=== PATIENT | female | born 1945 | race Caucasian/White ===

== ENCOUNTER 2018-01-19 15:40 | Observation (INO) | payer MEDICARE, OTHER ==
[~2018-01-19] VITALS: Ht 175.3 cm; Wt 91.5 kg
[2018-01-19 15:48] VITALS: BP 95/61; PULSE 121; RESP 16; TEMP 98.1; O2SAT 100
--- NOTE | 2018-01-19 15:57 | PD ---
HPI Chief Complaint: Abdominal Pain Time Seen by Provider: 15:57 Travel History International Travel<30 days: No Contact w/Intl Traveler<30days: No Traveled to known affect area: No History of Present Illness HPI 72-year-old female came to the emergency room with history of vomiting and abdominal pain that's been going on for 1 week. It's not getting better and hence patient decided to come to the emergency room. Patient says that yesterday she vomited about 9-10 times. She has been complaining of diffuse abdominal pain. All the symptoms are worsening and hence he decided to come to the emergency room. No aggravating or relieving symptoms. Vital signs are stable. PFSH Past Medical History Narrative Medical List of her past medical, surgical, social and family history is reviewed from the nursing note. Diabetes: Yes Social History Tobacco Use: No Allergies-Medications (Allergen,Severity, Reaction): Coded Allergies: No Known Allergies (Unverified , 01/20/18) Comments List of allergies reviewed from the nursing note. Reported Meds & Prescriptions Reported Meds & Active Scripts Active Reported Vitamin C (Ascorbic Acid) 250 Mg Tab 500 Mg PO DAILY Calcium 600+D (Calcium Carbonate-Cholecalciferol) 600-800 Mg-Unit Tab 1 Tab PO BID Fish Oil 1000 mg ([place]-3 Fatty Acids) 300 Mg-1,000 Mg Cap 1,000 Mg PO BID Colace (Docusate Sodium) 100 Mg Capsule 100 Mg PO DAILY PRN Tension Headache Reliever Tab (Acetaminophen/Phenyltolx) 325 Mg-30 Mg Tablet 1- 2 Tab PO Q4-6H PRN Fenofibrate 145 Mg Tab 145 Mg PO DAILY Gabapentin 600 Mg Tab 600 Mg PO BID Xanax (Alprazolam) 0.25 Mg Tab 0.25 Mg PO BID PRN Proventil Hfa 6.7 GM Inh (Albuterol Sulfate) 90 Mcg/Act Aer 2 Puff INH Q6H PRN Januvia (Sitagliptin Phosphate) 100 Mg Tab 100 Mg PO DAILY Metformin (Metformin HCl) 1,000 Mg Tab 1,000 Mg PO BID Magnesium Oxide 400 Mg Tab 400 Mg PO DAILY Lasix (Furosemide) 40 Mg Tab 40 Mg PO DAILY Aldactone (Spironolactone) 50 Mg Tab 50 Mg PO DAILY Paxil (Paroxetine HCl) 30 Mg Tab 30 Mg PO DAILY Aspirin Adult Low Strength (Aspirin) 81 Mg Chew 81 Mg PO DAILY Coumadin (Warfarin) 5 Mg Tab 5 Mg PO DAILY Diltiazem ER 24 HR 240 Mg Caper 240 Mg PO DAILY Lanoxin (Digoxin) 125 Mcg Tablet 125 Mcg PO DAILY Narrative Medication List of his home medications reviewed from the nursing note. Review of Systems Except as stated in HPI: all other systems reviewed are Neg Gastrointestinal: Positive: Nausea, Vomiting, Abdominal Pain Physical Exam Narrative GENERAL: Awake, alert, obese, moderate distress SKIN: Focused skin assessment warm/dry. HEAD: Atraumatic. Normocephalic. EYES: Pupils equal and round. No scleral icterus. No injection or drainage. ENT: No nasal bleeding or discharge. Dry mucous membrane NECK: Trachea midline. No JVD. CARDIOVASCULAR: Regular rate and rhythm. No murmur appreciated. RESPIRATORY: No accessory muscle use. Clear to auscultation. Breath sounds equal bilaterally. GASTROINTESTINAL: Abdomen soft, diffuse tenderness, nondistended. Hepatic and splenic margins not palpable. MUSCULOSKELETAL: No obvious deformities. No clubbing. No cyanosis. No edema. NEUROLOGICAL: Awake and alert. No obvious cranial nerve deficits. Motor grossly within normal limits. Normal speech. PSYCHIATRIC: Appropriate mood and affect; insight and judgment normal. Data Data Last Documented VS Vital Signs Date Time Temp Pulse Resp B/P (MAP) Pulse Ox O2 Delivery O2 Flow Rate FiO2 01/19/18 18:54 84 16 122/64 (83) 92 Room Air 01/19/18 18:48 2.00 01/19/18 15:48 98.1 Orders Orders Complete Blood Count With Diff (01/19/18 16:15) Comprehensive Metabolic Panel (01/19/18 16:15) Lipase (01/19/18 16:15) Ct Abd/Pel W/O Iv Contrast (01/19/18 16:15) Iv Access Insert/Monitor (01/19/18 16:15) Ecg Monitoring (01/19/18 16:15) Oximetry (01/19/18 16:15) Sodium Chlor 0.9% 1000 Ml Inj (Ns 1000 M (01/19/18 16:15) Sodium Chloride 0.9% Flush (Ns Flush) (01/19/18 16:15) Consult Pablo Nfs (01/19/18 ) Admit Order (Ed Use Only) (01/19/18 19:37) Labs Laboratory Tests Test 01/19/18 16:20 White Blood Count 6.8 TH/MM3 Red Blood Count 5.33 MIL/MM3 Hemoglobin 13.9 GM/DL Hematocrit 42.1 % Mean Corpuscular Volume 79.1 FL Mean Corpuscular Hemoglobin 26.0 PG Mean Corpuscular Hemoglobin Concent 32.9 % Red Cell Distribution Width 16.5 % Platelet Count 323 TH/MM3 Mean Platelet Volume 9.1 FL Neutrophils (%) (Auto) 64.5 % Lymphocytes (%) (Auto) 21.4 % Monocytes (%) (Auto) 10.7 % Eosinophils (%) (Auto) 2.7 % Basophils (%) (Auto) 0.7 % Neutrophils # (Auto) 4.4 TH/MM3 Lymphocytes # (Auto) 1.5 TH/MM3 Monocytes # (Auto) 0.7 TH/MM3 Eosinophils # (Auto) 0.2 TH/MM3 Basophils # (Auto) 0.1 TH/MM3 CBC Comment DIFF FINAL Differential Comment Blood Urea Nitrogen 9 MG/DL Creatinine 1.37 MG/DL Random Glucose 157 MG/DL Total Protein 8.4 GM/DL Albumin 3.9 GM/DL Calcium Level 9.9 MG/DL Alkaline Phosphatase 73 U/L Aspartate Amino Transf (AST/SGOT) 56 U/L Alanine Aminotransferase (ALT/SGPT) 39 U/L Total Bilirubin 0.4 MG/DL Sodium Level 130 MEQ/L Potassium Level 3.7 MEQ/L Chloride Level 92 MEQ/L Carbon Dioxide Level 28.4 MEQ/L Anion Gap 10 MEQ/L Estimat Glomerular Filtration Rate 38 ML/MIN Lipase 192 U/L [facility] Medical Decision Making Medical Screen Exam Complete: Yes Emergency Medical Condition: Yes Medical Record Reviewed: Yes Differential Diagnosis Small bowel obstruction, acute cholecystitis, acute appendicitis, acute appendicitis Narrative Course 7:36 PM blood test results are back. Patient has mild hyponatremia. CT scan shows appendicolith. I discussed the case with Dr. Chen who is on-call for general surgery. He agreed with patient's admission and he will consult on the patient. Patient has been admitted to the hospitalist. Procedures EKG Prior to Arrival: No Physician Communication Physician Communication Dr. Chen Diagnosis Primary Impression: Abdominal pain Qualified Codes: R10.84 - Generalized abdominal pain Additional Impressions: Vomiting Qualified Codes: R11.2 - Nausea with vomiting, unspecified Appendicolith Dehydration Admitting Information Admitting Physician Requests: Admit Scripts Glucocom Test Strips (Glucocom Test Strips) 1 Sudha Sudha EA .XX DIRECTED for Blood Sugar Management, #1 Prov: Mary Alice Blanchard 01/21/18 Lancets (Lancets) 1 Mis Mis EA .XX DIRECTED for Blood Sugar Management, #1 0 Refills Prov: Mary Alice Blanchard 01/21/18 Blood Glucose Monitoring W/Device (Glucocom Blood Glucose Mo W/Device) 1 Kit Kit KIT .XX DIRECTED for Blood Sugar Management, #1 Prov: Mary Alice Blanchard 01/21/18 Cefuroxime (Cefuroxime) 500 Mg Tab 500 MG PO BID for Infection for 2 Days, #4 TAB 0 Refills Prov: Mary Alice Blanchard 01/21/18 Juan Gaspar MD Jan 19, 2018 15:57
[2018-01-19] MEDS ORDERED: SODIUM CHLORIDE 0.9% FLUSH 10 ML FLUSH IV FLUSH PRN ×2 (16:15→20:00)
[2018-01-19] MEDS ORDERED: SODIUM CHLOR 0.9% 1000 ML INJ 1,000 ML IV SCH (16:15)
[2018-01-19] MEDS ORDERED: COUM5TAB PO (16:49)
[2018-01-19] MEDS ORDERED: ALPR.25 PO (16:49)
[2018-01-19] MEDS ORDERED: FURO1TAB60 PO (16:49)
[2018-01-19] MEDS ORDERED: SITA1TAB2 PO (16:49)
[2018-01-19] MEDS ORDERED: METF1000 PO (16:49)
[2018-01-19] MEDS ORDERED: GABA600T PO (16:49)
[2018-01-19] MEDS ORDERED: FENO145T2 PO (16:49)
[2018-01-19] MEDS ORDERED: ALBU6.7H INH (16:49)
[2018-01-19] MEDS ORDERED: COLA100C5 PO (16:49)
[2018-01-19] MEDS ORDERED: FISH100020 PO (16:49)
[2018-01-19] MEDS ORDERED: PAXI30TA7 PO (16:49)
[2018-01-19] MEDS ORDERED: DILT-48 PO (16:49)
[2018-01-19] MEDS ORDERED: LANO0.12 PO (16:49)
[2018-01-19] MEDS ORDERED: [UNRECOGNIZED DRUG - CODE] PO (16:49)
[2018-01-19] MEDS ORDERED: CALC1TAB37 PO (16:49)
[2018-01-19] MEDS ORDERED: MAGN400T2 PO (16:49)
[2018-01-19] MEDS ORDERED: [UNRECOGNIZED DRUG - CODE] PO (16:49)
[2018-01-19] MEDS ORDERED: ALDA50TA2 PO (16:49)
[2018-01-19] MEDS ORDERED: VITA250T3 PO (16:49)
[2018-01-19 17:00] LABS: AUTOMATED NEUTROPHIL # 4.4 TH/MM3 (1.8-7.7); BASOPHIL # 0.1 TH/MM3 (0-0.2); BASOPHIL % 0.7 % (0.0-2.0); EOSINOPHIL # 0.2 TH/MM3 (0-0.4); EOSINOPHIL % 2.7 % (0.0-4.0); HEMATOCRIT 42.1 % (35.0-46.0); HEMOGLOBIN 13.9 GM/DL (11.6-15.3); LYMPH % 21.4 % (9.0-44.0); LYMPHOCYTE # 1.5 TH/MM3 (1.0-4.8); MEAN CELL VOLUME 79.1 FL (80.0-100.0); MEAN CORPUSCULAR HGB CONC 32.9 % (32.0-36.0); MEAN PLATELET VOLUME 9.1 FL (7.0-11.0); MONO % 10.7 % (0.0-8.0); MONOCYTE # 0.7 TH/MM3 (0-0.9); NEUT % 64.5 % (16.0-70.0); PLATELET COUNT 323 TH/MM3 (150-450); RED BLOOD COUNT 5.33 MIL/MM3 (4.00-5.30); RED CELL DISTRIBUTION WIDTH 16.5 % (11.6-17.2); WHITE BLOOD COUNT 6.8 TH/MM3 (4.0-11.0)
[2018-01-19 17:16] LABS: ALBUMIN 3.9 GM/DL (3.4-5.0); ALT (GPT) 39 U/L (10-53); AST (GOT) 56 U/L (15-37); BICARBONATE 28.4 MEQ/L (21.0-32.0); BLOOD UREA NITROGEN 9 MG/DL (7-18); CALCIUM 9.9 MG/DL (8.5-10.1); CHLORIDE 92 MEQ/L (98-107); CREATININE 1.37 MG/DL (0.50-1.00); GLOMERULAR FILTRATION RATE 38 ML/MIN (>89); GLUCOSE,RANDOM 157 MG/DL (74-106); SODIUM (NA) 130 MEQ/L (136-145)
[2018-01-19 17:19] LABS: ALKALINE PHOSPHATASE 73 U/L (45-117); TOTAL BILIRUBIN ADULT 0.4 MG/DL (0.2-1.0); TOTAL PROTEIN 8.4 GM/DL (6.4-8.2)
--- NOTE | 2018-01-19 18:10 | RADRPT ---
EXAM DATE/TIME: 01/19/2018 17:50 [facility] COMPARISON: No previous studies available for comparison. INDICATIONS : Right upper abdominal pain for one week. ORAL CONTRAST: No oral contrast ingested. RADIATION DOSE: 15.33 CTDIvol (mGy) MEDICAL HISTORY : Diabetes mellitus type 1. Congestive heart failure. Hypertension.A fib SURGICAL HISTORY : Hysterectomy. ENCOUNTER: Initial ACUITY: 1 week PAIN SCALE: 5/10 LOCATION: Right upper quadrant TECHNIQUE: Volumetric scanning of the abdomen and pelvis was performed. Using automated exposure control and ad justment of the mA and/or kV according to patient size, radiation dose was kept as low as reasonably achievable to obtain optimal diagnostic quality images. DICOM format image data is available electro nically for review and comparison. FINDINGS: Lung bases are clear. The osseous structures demonstrate posterior toya and transpedicular screw fixat ion and intervertebral fusion hardware at L3-L5. No pleural or pericardial effusions. Hepatic steatos is. Gallbladder, spleen, pancreas, adrenals are unremarkable. There is mild scarring at the left midp ole kidney and the right kidney is atrophic with areas of parenchymal loss characteristic of scarring . Gallbladder unremarkable. Aortic and iliac artery calcifications. Urinary bladder is unremarkable. The appendix is normal in caliber with no surrounding inflammatory changes seen. A 4 mm calcified heather endicolith is present. CONCLUSION: 1. Calcified appendicolith. 2. Hepatic steatosis. 3. Bilateral renal scarring and right kidney is atrophic. Bahman Rodney MD on January 19, 2018 at 18:07 Board Certified Radiologist. This report was verified electronically.
[2018-01-19 18:48] VITALS: O2SAT 100
[2018-01-19 18:54] VITALS: BP 122/64; PULSE 84; RESP 16; O2SAT 92
--- NOTE | 2018-01-19 19:51 | HHI.HP ---
HPI Service [facility] Primary Care Physician No Primary Care Physician Admission Diagnosis abdominal pain, vomiting, appendix alert, dehydrated Diagnoses: (1) Intractable abdominal pain Diagnosis: Principal (2) Appendicolith Diagnosis: Principal (3) Renal insufficiency Diagnosis: Principal (4) A-fib Diagnosis: Principal (5) DM (diabetes mellitus) Diagnosis: Principal Travel History International Travel<30 Days: No Contact w/Intl Traveler <30 Da: No Traveled to Known Affected Are: No History of Present Illness This is a 72-year-old female with a PMH of HTN, A. fib on Coumadin, DM and CRI who presented to the ER w/ complaints of abdominal pain x2 wks. Visiting w/ from [place], [facility] she called her [employer] office and was told to come to ER for possible pancreatitis. Abdominal pain is in lower abdomen, cramping, intermittent, 8/10, non-radiating, associated w/ diarrhea and nausea, no vomiting. Denies fever, chills or sick contacts. On arrival, BP 95/61, HR 121, O2 sat 100% on RA, Afebrile. CBC essentially unremarkable. Creatinine 1.37, no previous labs for comparison. CT Abdomen/Pelvis calcified appendicolith, hepatic steatosis. Dr. Chen consulted by ER physician, plan is for admission to eval for early appendicitis. Review of Systems Except as stated in HPI: all other systems reviewed are Neg ROS: 14 point review of systems otherwise negative. Past Family Social History Past Medical History PMH: HTN, A. fib on Coumadin, DM and CRI Past Surgical History PAST SURGICAL HISTORY: Hysterectomy, Lumbar Fusion Allergies: Coded Allergies: amoxicillin (Verified Adverse Reaction, Severe, 01/19/18) VAGINAL DISCHARGE clavulanic acid (Verified Adverse Reaction, Severe, 01/19/18) VAGINAL DISCHARGE Family History PAST FAMILY HISTORY: Reviewed, positive for DM Social History PAST SOCIAL HISTORY: Occasional alcohol. Negative for tobacco or drugs. Physical Exam Vital Signs Vital Signs Date Time Temp Pulse Resp B/P (MAP) Pulse Ox O2 Delivery O2 Flow Rate FiO2 01/19/18 18:54 84 16 122/64 (83) 92 Room Air 01/19/18 18:48 100 Nasal Cannula 2.00 01/19/18 15:48 98.1 121 16 95/61 (72) 100 Physical Exam PE: GENERAL: Pleasant middle-aged white female in no acute distress. at bedside. HEENT: PERRLA, EOMI. No scleral icterus or conjunctival pallor. No lid lag or facial droop. CARDIOVASCULAR: Regular rate and rhythm. No obvious murmurs to auscultation. No chest tenderness to palpation. RESPIRATORY: No obvious rhonchi or wheezing. Clear to auscultation. Breath sounds equal bilaterally. GASTROINTESTINAL: Abdomen soft, mild tenderness to palpation LLQ and RLQ, nondistended. BS normal. MUSCULOSKELETAL: Extremities without clubbing, cyanosis, or edema. No obvious deformities. NEUROLOGICAL: Awake, alert and oriented x4. No focal neurologic deficits. Moving both upper and lower extremities spontaneously. Laboratory Laboratory Tests Test 01/19/18 16:20 White Blood Count 6.8 Red Blood Count 5.33 Hemoglobin 13.9 Hematocrit 42.1 Mean Corpuscular Volume 79.1 Mean Corpuscular Hemoglobin 26.0 Mean Corpuscular Hemoglobin Concent 32.9 Red Cell Distribution Width 16.5 Platelet Count 323 Mean Platelet Volume 9.1 Neutrophils (%) (Auto) 64.5 Lymphocytes (%) (Auto) 21.4 Monocytes (%) (Auto) 10.7 Eosinophils (%) (Auto) 2.7 Basophils (%) (Auto) 0.7 Neutrophils # (Auto) 4.4 Lymphocytes # (Auto) 1.5 Monocytes # (Auto) 0.7 Eosinophils # (Auto) 0.2 Basophils # (Auto) 0.1 CBC Comment DIFF FINAL Differential Comment Blood Urea Nitrogen 9 Creatinine 1.37 Random Glucose 157 Total Protein 8.4 Albumin 3.9 Calcium Level 9.9 Alkaline Phosphatase 73 Aspartate Amino Transf (AST/SGOT) 56 Alanine Aminotransferase (ALT/SGPT) 39 Total Bilirubin 0.4 Sodium Level 130 Potassium Level 3.7 Chloride Level 92 Carbon Dioxide Level 28.4 Anion Gap 10 Estimat Glomerular Filtration Rate 38 Lipase 192 Result Diagram: 01/19/18 1620 01/19/18 1620 Caprini VTE Risk Assessment Caprini VTE Risk Assessment: Mod/High Risk (score >= 2) Caprini Risk Assessment Model Point Value = 1 Point Value = 2 Point Value = 3 Point Value = 5 Age 41-60 Minor surgery BMI > 25 kg/m2 Swollen legs Varicose veins or History of unexplained or recurrent spontaneous Oral contraceptives or hormone replacement Sepsis (< 1 month) Serious lung disease, including pneumonia (< 1 month) Abnormal pulmonary function Acute myocardial infarction Congestive heart failure (< 1 month) History of inflammatory bowel disease Medical patient at bed rest Age 61-74 Arthroscopic surgery Major open surgery (> 45 min) Laparoscopic surgery (> 45 min) Malignancy Confined to bed (> 72 hours) Immobilizing plaster cast Central venous access Age >= 75 History of VTE Family history of VTE Factor V Leiden Prothrombin [id number] Lupus anticoagulant Anticardiolipin antibodies Elevated serum homocysteine Heparin-induced thrombocytopenia Other congenital or acquired thrombophilia Stroke (< 1 month) Elective arthroplasty Hip, pelvis, or leg fracture Acute spinal cord injury (< 1 month) Prophylaxis Regimen Total Risk Factor Score Risk Level Prophylaxis Regimen 0-1 Low Early ambulation 2 Moderate Order ONE of the following: *Sequential Compression Device (SCD) *Heparin 5000 units SQ BID 3-4 Higher Order ONE of the following medications: *Heparin 5000 units SQ TID *Enoxaparin/Lovenox 40 mg SQ daily (WT < 150 kg, CrCl > 30 mL/min) *Enoxaparin/Lovenox 30 mg SQ daily (WT < 150 kg, CrCl > 10-29 mL/min) *Enoxaparin/Lovenox 30 mg SQ BID (WT < 150 kg, CrCl > 30 mL/min) AND/OR *Sequential Compression Device (SCD) 5 or more Highest Order ONE of the following medications: *Heparin 5000 units SQ TID (Preferred with Epidurals) *Enoxaparin/Lovenox 40 mg SQ daily (WT < 150 kg, CrCl > 30 mL/min) *Enoxaparin/Lovenox 30 mg SQ daily (WT < 150 kg, CrCl > 10-29 mL/min) *Enoxaparin/Lovenox 30 mg SQ BID (WT < 150 kg, CrCl > 30 mL/min) AND *Sequential Compression Device (SCD) Assessment and Plan Problem List: (1) Intractable abdominal pain ICD Code: R10.9 - Unspecified abdominal pain (2) Appendicolith ICD Code: K38.9 - Disease of appendix, unspecified Status: Acute (3) Renal insufficiency ICD Code: N28.9 - Disorder of kidney and ureter, unspecified (4) A-fib ICD Code: I48.91 - Unspecified atrial fibrillation (5) DM (diabetes mellitus) ICD Code: E11.9 - Type 2 diabetes mellitus without complications Assessment and Plan A/P: 1. Intractable Abd Pain: acute onset of abdominal pain w/ associated nausea and diarrhea. IVF for hydration, analgesics/antiemetics as needed. 2. Appendicolith: CT Abd/Pelvis w/ appendicolith, images reviewed by me. Dr. Chen consulted by ER physician, will eval in am for possible early appendicitis. Monitor vitals, afebrile, no leukocytosis. Continue w/ pain control, IVF. 3. Renal Insufficiency: Reports "one functioning kidney", baseline creatinine unknown. Creatinine 1.37, will repeat labs in am, IVF for hydration, check U/a to eval for possible UTI. 4. A-fib: Chronic. Resume home Digoxin/Cardizem, hold Coumadin for possible surgical intervention if progression of appendicitis, restart after surgical eval if cleared. Check INR. 5. DM: Sliding scale w/ Accu-Cheks. Check Hgb A1c. Hold Metformin for possible surgical intervention and renal insufficiency. 6. DVT Prophylaxis: Resume Coumadin if no surgical intervention planned. 7. Social work for d/c planning as needed. 8. Case discussed w/ ER physician at length, labs/records/imaging reviewed by me. Vivienne Zamora MD Jan 19, 2018 19:51
[2018-01-19] MEDS ORDERED: ACETAMINOPHEN/HYDROcodone 325 MG/5 MG TAB PO PRN (20:00)
[2018-01-19] MEDS ORDERED: ONDANSETRON HCL 4 MG/2 ML VIAL IVP PRN (20:00)
[2018-01-19] MEDS ORDERED: ALPRAZolam 0.25 MG TAB PO PRN (20:00)
[2018-01-19] MEDS ORDERED: LACTULOSE SYRUP 20 GM/30 ML CUP PO PRN (20:00)
[2018-01-19] MEDS ORDERED: MORPHINE SULFATE 2 MG/ML INJ IV PUSH PRN (20:00)
[2018-01-19] MEDS ORDERED: MAGNESIUM HYDROXIDE SUSP 30 ML CUP PO PRN (20:00)
[2018-01-19] MEDS ORDERED: ALBUTEROL SULFATE 90 MCG/ACT HFA 8 GM INHALER INH PRN (20:00)
[2018-01-19] MEDS ORDERED: BISACODYL 10 MG SUPP RECTAL PRN (20:00)
[2018-01-19] MEDS ORDERED: ACETAMINOPHEN 325 MG TAB PO PRN (20:00)
[2018-01-19] MEDS ORDERED: SENNOSIDES 8.6 MG TAB PO PRN (20:00)
[2018-01-19] MEDS: DOCUSATE SODIUM 50 MG/SENNA 8.6 MG TAB PO SCH (21:00)
--- NOTE | 2018-01-19 21:23 | RADRPT ---
EXAM DATE/TIME: 01/19/2018 21:09 [facility] COMPARISON: CT ABDOMEN & PELVIS W/O CONTRAST, January 19, 2018, 17:50. INDICATIONS : Cough MEDICAL HISTORY : Hypertension. Hypercholesterolemia. Diabetes mellitus type II. A-fib. Congestive heart failure. SURGICAL HISTORY : Hysterectomy. ENCOUNTER: Initial ACUITY: 1 week PAIN SCORE: 0/10 LOCATION: Bilateral chest FINDINGS: PA and lateral views of the chest demonstrate the lungs to be symmetrically aerated without evidence of mass, infiltrate or effusion. The cardiomediastinal contours are unremarkable. Osseous structure s are intact. CONCLUSION: No acute disease. Bahman Rodney MD on January 19, 2018 at 21:22 Board Certified Radiologist. This report was verified electronically.
[2018-01-19] MEDS: GABAPENTIN 300 MG CAP PO SCH (21:26)
[2018-01-19] MEDS: SODIUM CHLOR 0.9% 1000 ML INJ 1,000 ML IV SCH (21:26)
[2018-01-19] MEDS: SODIUM CHLORIDE 0.9% FLUSH 10 ML FLUSH IV FLUSH SCH (21:26)
--- NOTE | 2018-01-19 21:44 | MB ---
cc: Kervin Chen MD DATE OF CONSULT: 01/19/2018 REASON FOR CONSULTATION: Fecalith found in appendix on CT scan. HISTORY: This is a 72-year-old female who came to the emergency room after having profuse nausea and vomiting, diarrhea for about a week. She says she has never had anything like this before. She vomited yesterday about 10 times. She has some abdominal pain that she says is in the umbilical region, left lower quadrant, right lower quadrant. The CT scan was done which showed a little fecalith in the appendix without any evidence of inflammation. She is being admitted for treatment. PAST MEDICAL HISTORY: Significant for atrial fibrillation. She had some congestive heart failure in the past. She has diabetes, depression, anxiety. She wears glasses. PAST SURGICAL HISTORY: She has had a hysterectomy and back surgery. REVIEW OF SYSTEMS: CARDIOVASCULAR: Again she has hypertension, congestive heart failure, atrial fibrillation on the cardiovascular review. MUSCULOSKELETAL: She had a lumbar fusion. ENDOCRINE: She has diabetes. GASTROINTESTINAL: She had a colonoscopy about 10 years ago. MEDICATIONS: She takes Xanax, vitamin C, aspirin, calcium, digoxin, Colace, fenofibrate, Lasix, gabapentin, metformin, Paxil, warfarin, Aldactone, Januvia. ALLERGIES: AMOXICILLIN AND ____ ACID. PHYSICAL EXAMINATION: GENERAL: She is a pleasant lady sitting in the chair. NECK: Supple. CHEST: Clear. HEART: Irregularly irregular. PULMONARY: She as fairly bilateral rhonchi and wheezing. ABDOMEN: Obese, soft, without rebound or guarding. Surgical scar at the umbilicus down. EXTREMITIES: Moves all extremities well. No clubbing, cyanosis or edema. LABORATORY DATA: She had a white count of 6, H and H of 13 and 42. Chemistry shows a creatinine of 1.3, glucose of 157. IMAGING STUDIES: CT scan was done of her abdomen which shows calcified appendicolith, some scarring on both her kidneys. Pending x-ray: Chest x-ray. ASSESSMENT: A 72-year-old female with diabetes, congestive heart failure, atrial fibrillation, on long-term anticoagulation with dehydration, abdominal pain, nausea and vomiting and appendicolith in her appendix. She has a fair amount of congestion. I suspect she has pneumonia with the amount of coughing she is doing and wheezing and congestion. At this time I think she needs treatment for her pneumonia. The appendicolith I think is an incidental finding. She has nothing to suggest she has appendicitis on examination. I have gone ahead and ordered some stool studies on her for the amount of diarrhea that she is experiencing. PLAN: Will repeat her exam and follow up on the studies. Kervin Chen MD JDB/rt , 09:07 PM , 09:42 PM
[2018-01-19 23:28] VITALS: BP 125/57; PULSE 56; RESP 18; TEMP 98.1; O2SAT 93
[2018-01-19 23:28] LABS: BACTERIA, URINE MANY /hpf; BILIRUBIN, URINE NEG (NEG); BLOOD, URINE NEG (NEG); GLUCOSE,URINE NEG (NEG); KETONE, URINE NEG (NEG); NITRITE,URINE POS (NEG); PH, URINE 5.5 (5.0-8.5); SQUAMOUS EPITHELIAL CELL URINE <1 /hpf (0-5); URINE COLOR LIGHT-YELLOW (YELLW/STRAW); URINE LEUKOCYTE ESTERASE LARGE (NEG); WHITE BLOOD CELL CLUMPS RARE
[2018-01-20] MEDS: SODIUM CHLOR 0.9% 1000 ML INJ 1,000 ML IV SCH ×2 (05:47→16:40)
[2018-01-20] MEDS: DIGOXIN 0.125 MG TAB PO SCH (08:07)
[2018-01-20] MEDS: PARoxetine HCL 20 MG TAB PO SCH (08:07)
[2018-01-20] MEDS: MAGNESIUM OXIDE 400 MG TAB PO SCH (08:08)
[2018-01-20] MEDS: FUROSEMIDE 40 MG TAB PO SCH (08:08)
[2018-01-20] MEDS: DOCUSATE SODIUM 50 MG/SENNA 8.6 MG TAB PO SCH ×2 (08:08→20:24)
[2018-01-20] MEDS: SODIUM CHLORIDE 0.9% FLUSH 10 ML FLUSH IV FLUSH SCH ×2 (08:08→20:24)
[2018-01-20] MEDS: GABAPENTIN 300 MG CAP PO SCH ×2 (08:08→20:24)
[2018-01-20] MEDS: DILTIAZEM-CD 240 MG CAP ER PO SCH (08:08)
[2018-01-20 08:52] VITALS: BP 126/63; PULSE 60; RESP 20; TEMP 98.2; O2SAT 98
[2018-01-20 09:12] LABS: AUTOMATED NEUTROPHIL # 2.8 TH/MM3 (1.8-7.7); BASOPHIL # 0.1 TH/MM3 (0-0.2); BASOPHIL % 1.2 % (0.0-2.0); EOSINOPHIL # 0.3 TH/MM3 (0-0.4); EOSINOPHIL % 5.1 % (0.0-4.0); HEMATOCRIT 38.7 % (35.0-46.0); HEMOGLOBIN 12.7 GM/DL (11.6-15.3); LYMPH % 35.2 % (9.0-44.0); LYMPHOCYTE # 2.1 TH/MM3 (1.0-4.8); MEAN CELL VOLUME 79.2 FL (80.0-100.0); MEAN CORPUSCULAR HEMOGLOBIN 25.9 PG (27.0-34.0); MEAN CORPUSCULAR HGB CONC 32.7 % (32.0-36.0); MEAN PLATELET VOLUME 8.9 FL (7.0-11.0); MONO % 10.8 % (0.0-8.0); MONOCYTE # 0.6 TH/MM3 (0-0.9); NEUT % 47.7 % (16.0-70.0); PLATELET COUNT 309 TH/MM3 (150-450); RED BLOOD COUNT 4.89 MIL/MM3 (4.00-5.30); RED CELL DISTRIBUTION WIDTH 16.7 % (11.6-17.2); WHITE BLOOD COUNT 5.9 TH/MM3 (4.0-11.0)
[2018-01-20 09:29] LABS: INTERNATIONAL NORMALIZED RATIO 1.9 RATIO; PROTHROMBIN TIME - PATIENT 19.4 SEC (9.8-11.6)
--- NOTE | 2018-01-20 09:56 | HHI.PR ---
Subjective Remarks This is a 72-year-old female with a PMH of HTN, A. fib on Coumadin, DM and CRI who presented to the ER w/ complaints of abdominal pain x2 wks. Visiting w/ from [place], [facility] she called her [employer] office and was told to come to ER for possible pancreatitis. Abdominal pain is in lower abdomen, cramping, intermittent, 8/10, non-radiating, associated w/ diarrhea and nausea, no vomiting. Denies fever, chills or sick contacts. On arrival, BP 95/61, HR 121, O2 sat 100% on RA, Afebrile. CBC essentially unremarkable. Creatinine 1.37, no previous labs for comparison. CT Abdomen/Pelvis calcified appendicolith, hepatic steatosis. Dr. Chen consulted by ER physician, plan is for admission to eval for early appendicitis. 3-5 patient was found to have urinary tract infection will start on Rocephin Has no true allergy to amoxicillin clavulanic acid just got a yeast infection after taking IT Will continue with fluids and diet and a.m. labs Hopefully can be discharged home tomorrow Has positive cough and some congestion Objective Vitals Vital Signs Date Time Temp Pulse Resp B/P (MAP) Pulse Ox O2 Delivery O2 Flow Rate FiO2 01/20/18 08:52 98.2 60 20 126/63 (84) 98 01/19/18 23:28 98.1 56 18 125/57 (79) 93 01/19/18 18:54 84 16 122/64 (83) 92 Room Air 01/19/18 18:48 100 Nasal Cannula 2.00 01/19/18 15:48 98.1 121 16 95/61 (72) 100 I/O 01/19/18 01/19/18 01/19/18 01/20/18 01/20/18 01/20/18 07:00 15:00 23:00 07:00 15:00 23:00 Intake Total 2000 ml Balance 2000 ml Intake IV Total 2000 ml Result Diagram: 01/20/18 0800 01/19/18 1620 Other Results Laboratory Tests Test 01/19/18 16:20 01/19/18 23:00 01/20/18 08:00 White Blood Count 6.8 TH/MM3 5.9 TH/MM3 Red Blood Count 5.33 MIL/MM3 4.89 MIL/MM3 Hemoglobin 13.9 GM/DL 12.7 GM/DL Hematocrit 42.1 % 38.7 % Mean Corpuscular Volume 79.1 FL 79.2 FL Mean Corpuscular Hemoglobin 26.0 PG 25.9 PG Mean Corpuscular Hemoglobin Concent 32.9 % 32.7 % Red Cell Distribution Width 16.5 % 16.7 % Platelet Count 323 TH/MM3 309 TH/MM3 Mean Platelet Volume 9.1 FL 8.9 FL Neutrophils (%) (Auto) 64.5 % 47.7 % Lymphocytes (%) (Auto) 21.4 % 35.2 % Monocytes (%) (Auto) 10.7 % 10.8 % Eosinophils (%) (Auto) 2.7 % 5.1 % Basophils (%) (Auto) 0.7 % 1.2 % Neutrophils # (Auto) 4.4 TH/MM3 2.8 TH/MM3 Lymphocytes # (Auto) 1.5 TH/MM3 2.1 TH/MM3 Monocytes # (Auto) 0.7 TH/MM3 0.6 TH/MM3 Eosinophils # (Auto) 0.2 TH/MM3 0.3 TH/MM3 Basophils # (Auto) 0.1 TH/MM3 0.1 TH/MM3 CBC Comment DIFF FINAL DIFF FINAL Differential Comment Blood Urea Nitrogen 9 MG/DL Creatinine 1.37 MG/DL Random Glucose 157 MG/DL Total Protein 8.4 GM/DL Albumin 3.9 GM/DL Calcium Level 9.9 MG/DL Alkaline Phosphatase 73 U/L Aspartate Amino Transf (AST/SGOT) 56 U/L Alanine Aminotransferase (ALT/SGPT) 39 U/L Total Bilirubin 0.4 MG/DL Sodium Level 130 MEQ/L Potassium Level 3.7 MEQ/L Chloride Level 92 MEQ/L Carbon Dioxide Level 28.4 MEQ/L Anion Gap 10 MEQ/L Estimat Glomerular Filtration Rate 38 ML/MIN Lipase 192 U/L Urine Color LIGHT-YELLOW Urine Turbidity HAZY Urine pH 5.5 Urine Specific [place] 1.007 Urine Protein NEG mg/dL Urine Glucose (UA) NEG mg/dL Urine Ketones NEG mg/dL Urine Occult Blood NEG Urine Nitrite POS Urine Bilirubin NEG Urine Urobilinogen LESS THAN 2.0 MG/DL Urine Leukocyte Esterase LARGE Urine RBC 3 /hpf Urine WBC 159 /hpf Urine WBC Clumps RARE Urine Squamous Epithelial Cells <1 /hpf Urine Bacteria MANY /hpf Microscopic Urinalysis Comment CULTURE INDICATED Prothrombin Time 19.4 SEC Prothromb Time International Ratio 1.9 RATIO Imaging Last Impressions Abdomen/Pelvis CT 01/19/18 1615 Signed Impressions: Service Date/Time: Friday, January 19, 2018 17:50 - CONCLUSION: 1. Calcified appendicolith. 2. Hepatic steatosis. 3. Bilateral renal scarring and right kidney is atrophic. Bahman Rodney MD Chest X-Ray 01/19/18 0000 Signed Impressions: Service Date/Time: Friday, January 19, 2018 21:09 - CONCLUSION: No acute disease. Bahman Rodney MD Objective Remarks GENERAL: Awake alert oriented 3 in no acute distress talkative and cooperative SKIN: Warm and dry. HEAD: Atraumatic. Normocephalic. EYES: Pupils equal and round. No scleral icterus. No injection or drainage. Extraocular muscles intact ENT: No nasal bleeding or discharge. Mucous membranes pink and moist. Tongue is midline NECK: Trachea midline. No JVD. Supple CARDIOVASCULAR: Regular rate and rhythm. S1-S2 no S3 or S4 RESPIRATORY: No accessory muscle use. Clear to auscultation. Breath sounds equal bilaterally. GASTROINTESTINAL: Abdomen soft, non-tender, nondistended. Hepatic and splenic margins not palpable. MUSCULOSKELETAL: Extremities without clubbing, cyanosis, or edema. No obvious deformities. NEUROLOGICAL: Awake and alert. No obvious cranial nerve deficits. Motor grossly within normal limits. Five out of 5 muscle strength in the arms and legs. Normal speech. PSYCHIATRIC: Appropriate mood and affect; insight and judgment normal. Procedures NONE Medications and IVs Current Medications Sodium Chloride 1,000 ml @ 1,000 mls/hr Q1H IV Last administered on 01/19/18at 18:45; Start 01/19/18 at 16:15; Stop 01/19/18 at 17:14; Status DC Sodium Chloride (NS Flush) 2 ml UNSCH PRN IV FLUSH FLUSH AFTER USING IV ACCESS ; Start 01/19/18 at 16:15 Sodium Chloride 1,000 ml @ 100 mls/hr Q10H IV Last administered on 01/20/18at 05 :47; Start 01/19/18 at 19:47 Sodium Chloride (NS Flush) 2 ml UNSCH PRN IV FLUSH FLUSH AFTER USING IV ACCESS ; Start 01/19/18 at 20:00 Sodium Chloride (NS Flush) 2 ml BID IV FLUSH Last administered on 01/20/18at 08: 08; Start 01/19/18 at 21:00 Ondansetron HCl (Zofran Inj) 4 mg Q6H PRN IVP NAUSEA OR VOMITING; Start at 20:00 Acetaminophen (Tylenol) 650 mg Q6H PRN PO FEVER/PAIN SCALE 1 TO 2; Start at 20:00 Acetaminophen/ Hydrocodone Bitart ([place] 5-325 Mg) 1 tab Q4H PRN PO PAIN SCALE 3 TO 5; Start 01/19/18 at 20:00 Morphine Sulfate (Morphine Inj) 2 mg Q3H PRN IV PUSH Pain 6-10; Start 01/19/18 at 20:00 Senna/Docusate Sodium (Lyubov-Colace) 1 tab BID PO Last administered on 01/20/18at 08:08; Start 01/19/18 at 21:00 Magnesium Hydroxide (Milk Of Magnesia Liq) 30 ml Q12H PRN PO Mild constipation ; Start 01/19/18 at 20:00 Sennosides (Senokot) 17.2 mg Q12H PRN PO Moderate constipation; Start 01/19/18 at 20:00 Bisacodyl (Dulcolax Supp) 10 mg DAILY PRN RECTAL SEVERE CONSITIPATION; Start at 20:00 Lactulose (Lactulose Liq) 30 ml DAILY PRN PO SEVERE CONSITIPATION; Start at 20:00 Albuterol Sulfate (Proair Hfa Inh) 2 puff Q6H PRN INH SHORTNESS OF BREATH; Start 01/19/18 at 20:00 Alprazolam (Xanax) 0.25 mg BID PRN PO ANXIETY; Start 01/19/18 at 20:00 Digoxin (Lanoxin) 0.125 mg DAILY PO Last administered on 01/20/18at 08:07; Start 01/20/18 at 09:00 Diltiazem HCl (Cardizem Cd) 240 mg DAILY PO Last administered on 01/20/18at 08:08 ; Start 01/20/18 at 09:00 Furosemide (Lasix) 40 mg DAILY PO Last administered on 01/20/18at 08:08; Start at 09:00 Gabapentin (Neurontin) 600 mg BID PO Last administered on 01/20/18at 08:08; Start 01/19/18 at 21:00 Magnesium Oxide (Mag-Ox) 400 mg DAILY PO Last administered on 01/20/18at 08:08; Start 01/20/18 at 09:00 Spironolactone (Aldactone) 50 mg DAILY PO ; Start 01/20/18 at 09:00 Paroxetine HCl (Paxil) 30 mg DAILY PO Last administered on 01/20/18at 08:07; Start 01/20/18 at 09:00 Ceftriaxone Sodium 1000 mg/ Sodium Chloride 100 ml @ 200 mls/hr Q24H IV ; Start 01/20/18 at 10:00 A/P Problem List: (1) Intractable abdominal pain ICD Code: R10.9 - Unspecified abdominal pain (2) Appendicolith ICD Code: K38.9 - Disease of appendix, unspecified Status: Acute (3) Renal insufficiency ICD Code: N28.9 - Disorder of kidney and ureter, unspecified (4) A-fib ICD Code: I48.91 - Unspecified atrial fibrillation (5) DM (diabetes mellitus) ICD Code: E11.9 - Type 2 diabetes mellitus without complications Assessment and Plan 1. Intractable Abd Pain: acute onset of abdominal pain w/ associated nausea and diarrhea. IVF for hydration, analgesics/antiemetics as needed. Found to have positive urinary tract infection will continue on Rocephin 2. Appendicolith: CT Abd/Pelvis w/ appendicolith, images reviewed by me. Dr. Chen consulted by ER physician, will eval in am for possible early appendicitis. Monitor vitals, afebrile, no leukocytosis. Continue w/ pain control, IVF. 3. Renal Insufficiency: Reports "one functioning kidney", baseline creatinine unknown. Creatinine 1.37, will repeat labs in am, IVF for hydration, check U/a to eval for possible UTI. Has positive UTI will continue on Rocephin 1 g daily 4. A-fib: Chronic. Resume home Digoxin/Cardizem, hold Coumadin for possible surgical intervention if progression of appendicitis, restart after surgical eval if cleared. Check INR. Continue Coumadin 5. DM: Sliding scale w/ Accu-Cheks. Check Hgb A1c. Hold Metformin for possible surgical intervention and renal insufficiency. 6. DVT Prophylaxis: Resume Coumadin if no surgical intervention planned. 7. Social work for d/c planning as needed. Discharge Planning Hopefully discharge in the next 24-48 hour We will treat her urinary tract infection Wili Peguero DO Jan 20, 2018 09:56
[2018-01-20] MEDS ORDERED: NON-FORMULARY DRUG (Omega-3 Fatty Acids (Fish Oil 1000 mg) 1,000 MG) PO SCH (10:00)
[2018-01-20 10:18] LABS: ALBUMIN 3.5 GM/DL (3.4-5.0); ALKALINE PHOSPHATASE 60 U/L (45-117); ALT (GPT) 34 U/L (10-53); AST (GOT) 43 U/L (15-37); BLOOD UREA NITROGEN 10 MG/DL (7-18); CHLORIDE 99 MEQ/L (98-107); CREATININE 1.06 MG/DL (0.50-1.00); GLOMERULAR FILTRATION RATE 51 ML/MIN (>89); GLUCOSE,RANDOM 163 MG/DL (74-106); SODIUM (NA) 135 MEQ/L (136-145); TOTAL BILIRUBIN ADULT 0.3 MG/DL (0.2-1.0); TOTAL PROTEIN 7.5 GM/DL (6.4-8.2)
[2018-01-20 10:28] LABS: HEMOGLOBIN A1C 8.2 % (4.3-6.0)
[2018-01-20] MEDS: FENOFIBRATE 145 MG TAB PO SCH (11:12)
[2018-01-20] MEDS: ASCORBIC ACID 500 MG TAB PO SCH (11:12)
[2018-01-20] MEDS: ASPIRIN 81 MG CHEW TAB PO SCH (11:13)
[2018-01-20] MEDS: cefTRIAXone INJ 1,000 MG in SODIUM CHLORIDE 0.9% INJ 100 ML IV SCH (11:13)
[2018-01-20] MEDS: SPIRONOLACTONE 50 MG TAB PO SCH (11:13)
[2018-01-20] MEDS: CALCIUM/VITAMIN D 250 MG/125 U TAB PO SCH ×2 (11:13→20:24)
[2018-01-20 12:22] VITALS: BP 120/60; PULSE 60; RESP 20; TEMP 98.6; O2SAT 98
--- NOTE | 2018-01-20 13:25 | HHI.PR ---
Subjective Subjective Notes No abdominal pain or diarrhea since yesterday. Tolerating diet without any difficulty. Objective Vitals/I&O Vital Signs Date Time Temp Pulse Resp B/P (MAP) Pulse Ox O2 Delivery O2 Flow Rate FiO2 01/20/18 12:22 98.6 60 20 120/60 (80) 98 01/19/18 18:54 Room Air 01/19/18 18:48 2.00 Labs Laboratory Tests Test 01/19/18 16:20 01/19/18 23:00 01/20/18 08:00 01/20/18 11:08 White Blood Count 6.8 5.9 Red Blood Count 5.33 4.89 Hemoglobin 13.9 12.7 Hematocrit 42.1 38.7 Mean Corpuscular Volume 79.1 79.2 Mean Corpuscular Hemoglobin 26.0 25.9 Mean Corpuscular Hemoglobin Concent 32.9 32.7 Red Cell Distribution Width 16.5 16.7 Platelet Count 323 309 Mean Platelet Volume 9.1 8.9 Neutrophils (%) (Auto) 64.5 47.7 Lymphocytes (%) (Auto) 21.4 35.2 Monocytes (%) (Auto) 10.7 10.8 Eosinophils (%) (Auto) 2.7 5.1 Basophils (%) (Auto) 0.7 1.2 Neutrophils # (Auto) 4.4 2.8 Lymphocytes # (Auto) 1.5 2.1 Monocytes # (Auto) 0.7 0.6 Eosinophils # (Auto) 0.2 0.3 Basophils # (Auto) 0.1 0.1 CBC Comment DIFF FINAL DIFF FINAL Differential Comment Blood Urea Nitrogen 9 10 Creatinine 1.37 1.06 Random Glucose 157 163 Total Protein 8.4 7.5 Albumin 3.9 3.5 Calcium Level 9.9 9.0 Alkaline Phosphatase 73 60 Aspartate Amino Transf (AST/SGOT) 56 43 Alanine Aminotransferase (ALT/SGPT) 39 34 Total Bilirubin 0.4 0.3 Sodium Level 130 135 Potassium Level 3.7 3.4 Chloride Level 92 99 Carbon Dioxide Level 28.4 28.0 Anion Gap 10 8 Estimat Glomerular Filtration Rate 38 51 Lipase 192 Urine Color LIGHT-YELLOW Urine Turbidity HAZY Urine pH 5.5 Urine Specific [place] 1.007 Urine Protein NEG Urine Glucose (UA) NEG Urine Ketones NEG Urine Occult Blood NEG Urine Nitrite POS Urine Bilirubin NEG Urine Urobilinogen LESS THAN 2.0 Urine Leukocyte Esterase LARGE Urine RBC 3 Urine WBC 159 Urine WBC Clumps RARE Urine Squamous Epithelial Cells <1 Urine Bacteria MANY Microscopic Urinalysis Comment CULTURE INDICATED Prothrombin Time 19.4 Prothromb Time International Ratio 1.9 Hemoglobin A1c 8.2 Test 01/20/18 11:45 Prothrombin Time 20.0 Prothromb Time International Ratio 2.0 Digoxin Level 1.0 Date/Time Source Procedure Growth Status 01/20/18 11:08 Stool Stool Giardia Antigen (BRADLY) Pending Received 01/19/18 23:00 Urine Clean Catch Urine Culture Pending Received Lungs: Upper airway course sound, Rhonchi (on the right side anteriorly, clears with coughing) Abdomen: Non-distended, Non-tender Extremities: No edema A/P Assessment and Plan Nausea, vomiting, diarrhea; appendicolith present but no abdominal pain today UTI; culture pending C. difficile pending Tolerating diet CXR appears normal Old smoker (quit many years ago) Probable gastroenteritis, resolving. Continue diet Albuterol nebulizer Rx x 1 today Likely discharge tomorrow on PO antibiotic for UTI if she continues to improve and C diff negative. Does not need surgery for appendix incidental finding at this time. Follow up Dr. Chen one week in his office. Heath Valdes MD Jan 20, 2018 13:25
[2018-01-20] MEDS ORDERED: RESP: ALBUTEROL 2.5 MG/IPRATROPIUM 0.5 MG NEB (SCH) NEB ONE (13:30)
[2018-01-20] MEDS ORDERED: WARFARIN SOD 5 MG TAB PO SCH (16:00)
--- NOTE | 2018-01-20 21:28 | HHI.PR ---
Subjective Remarks NOT SEEN Objective Vitals Vital Signs Date Time Temp Pulse Resp B/P (MAP) Pulse Ox O2 Delivery O2 Flow Rate FiO2 01/20/18 12:22 98.6 60 20 120/60 (80) 98 01/20/18 08:52 98.2 60 20 126/63 (84) 98 01/19/18 23:28 98.1 56 18 125/57 (79) 93 I/O 01/19/18 01/19/18 01/19/18 01/20/18 01/20/18 01/20/18 07:00 15:00 23:00 07:00 15:00 23:00 Intake Total 2000 ml 1050 ml 1600 ml Balance 2000 ml 1050 ml 1600 ml Intake Oral 750 ml IV Total 2000 ml 1050 ml 850 ml Result Diagram: 01/20/18 0800 01/20/18 0800 Imaging Last Impressions Abdomen/Pelvis CT 01/19/18 1615 Signed Impressions: Service Date/Time: Friday, January 19, 2018 17:50 - CONCLUSION: 1. Calcified appendicolith. 2. Hepatic steatosis. 3. Bilateral renal scarring and right kidney is atrophic. Bahman Rodney MD Chest X-Ray 01/19/18 0000 Signed Impressions: Service Date/Time: Friday, January 19, 2018 21:09 - CONCLUSION: No acute disease. Bahman Rodney MD Objective Remarks GENERAL: Awake alert oriented 3 in no acute distress talkative and cooperative SKIN: Warm and dry. HEAD: Atraumatic. Normocephalic. EYES: Pupils equal and round. No scleral icterus. No injection or drainage. Extraocular muscles intact ENT: No nasal bleeding or discharge. Mucous membranes pink and moist. Tongue is midline NECK: Trachea midline. No JVD. Supple CARDIOVASCULAR: Regular rate and rhythm. S1-S2 no S3 or S4 RESPIRATORY: No accessory muscle use. Clear to auscultation. Breath sounds equal bilaterally. GASTROINTESTINAL: Abdomen soft, non-tender, nondistended. Hepatic and splenic margins not palpable. MUSCULOSKELETAL: Extremities without clubbing, cyanosis, or edema. No obvious deformities. NEUROLOGICAL: Awake and alert. No obvious cranial nerve deficits. Motor grossly within normal limits. Five out of 5 muscle strength in the arms and legs. Normal speech. PSYCHIATRIC: Appropriate mood and affect; insight and judgment normal. Procedures NONE A/P Problem List: (1) Intractable abdominal pain ICD Code: R10.9 - Unspecified abdominal pain (2) Appendicolith ICD Code: K38.9 - Disease of appendix, unspecified Status: Acute (3) Renal insufficiency ICD Code: N28.9 - Disorder of kidney and ureter, unspecified (4) A-fib ICD Code: I48.91 - Unspecified atrial fibrillation (5) DM (diabetes mellitus) ICD Code: E11.9 - Type 2 diabetes mellitus without complications Assessment and Plan 1. Intractable Abd Pain: acute onset of abdominal pain w/ associated nausea and diarrhea. IVF for hydration, analgesics/antiemetics as needed. Found to have positive urinary tract infection will continue on Rocephin 2. Appendicolith: CT Abd/Pelvis w/ appendicolith, images reviewed by me. GS plans no immediate intervention op f/u Monitor vitals, afebrile, no leukocytosis. Continue w/ pain control, IVF. 3. Renal Insufficiency: Reports "one functioning kidney", baseline creatinine unknown. 4. A-fib: Chronic. Resume home Digoxin/Cardizem, hold Coumadin for possible surgical intervention if progression of appendicitis, restart after surgical eval if cleared. Check INR. Continue Coumadin 5. DM: Sliding scale w/ Accu-Cheks. Check Hgb A1c. Hold Metformin for possible surgical intervention and renal insufficiency. 6. DVT Prophylaxis: Resume Coumadin if no surgical intervention planned. Adalberto Kay MD Jan 20, 2018 21:28
[2018-01-20] MEDS ORDERED: POTASSIUM CHLORIDE 20 MEQ CONTROLLED RELEASE TAB PO ONE (21:30)
[2018-01-20 23:49] VITALS: BP 121/58; PULSE 60; RESP 17; TEMP 98.5; O2SAT 93
[2018-01-21] MEDS: SODIUM CHLOR 0.9% 1000 ML INJ 1,000 ML IV SCH ×2 (01:47→08:29)
[2018-01-21 04:11] VITALS: BP 126/58; PULSE 64; RESP 16; TEMP 97.7; O2SAT 94
[2018-01-21 05:05] LABS: AUTOMATED NEUTROPHIL # 3.4 TH/MM3 (1.8-7.7); BASOPHIL # 0.1 TH/MM3 (0-0.2); BASOPHIL % 0.8 % (0.0-2.0); EOSINOPHIL # 0.5 TH/MM3 (0-0.4); EOSINOPHIL % 7.3 % (0.0-4.0); HEMOGLOBIN 11.8 GM/DL (11.6-15.3); LYMPH % 36.6 % (9.0-44.0); LYMPHOCYTE # 2.7 TH/MM3 (1.0-4.8); MEAN CORPUSCULAR HEMOGLOBIN 26.6 PG (27.0-34.0); MEAN CORPUSCULAR HGB CONC 33.7 % (32.0-36.0); MEAN PLATELET VOLUME 8.5 FL (7.0-11.0); MONO % 8.4 % (0.0-8.0); MONOCYTE # 0.6 TH/MM3 (0-0.9); NEUT % 46.9 % (16.0-70.0); PLATELET COUNT 278 TH/MM3 (150-450); RED BLOOD COUNT 4.43 MIL/MM3 (4.00-5.30); RED CELL DISTRIBUTION WIDTH 16.7 % (11.6-17.2); WHITE BLOOD COUNT 7.4 TH/MM3 (4.0-11.0)
[2018-01-21 05:36] LABS: ALBUMIN 3.3 GM/DL (3.4-5.0); ALT (GPT) 31 U/L (10-53); BICARBONATE 29.5 MEQ/L (21.0-32.0); BLOOD UREA NITROGEN 9 MG/DL (7-18); CALCIUM 9.6 MG/DL (8.5-10.1); CHLORIDE 100 MEQ/L (98-107); CREATININE 1.02 MG/DL (0.50-1.00); GLOMERULAR FILTRATION RATE 53 ML/MIN (>89); GLUCOSE,RANDOM 173 MG/DL (74-106); MAGNESIUM 1.7 MG/DL (1.5-2.5); PHOSPHORUS 3.8 MG/DL (2.5-4.9); SODIUM (NA) 139 MEQ/L (136-145)
[2018-01-21 05:45] LABS: ALKALINE PHOSPHATASE 60 U/L (45-117); AST (GOT) 29 U/L (15-37); TOTAL BILIRUBIN ADULT 0.3 MG/DL (0.2-1.0); TOTAL PROTEIN 7.1 GM/DL (6.4-8.2)
[2018-01-21 07:41] VITALS: BP 109/63; PULSE 75; RESP 20; TEMP 97.5; O2SAT 92
[2018-01-21] MEDS ORDERED: GLUCAGON 1 MG/ML VIAL OTHER PRN (08:00)
[2018-01-21] MEDS ORDERED: DEXTROSE 50% IN WATER 50 ML VIAL(D50) IV PUSH PRN (08:00)
[2018-01-21] MEDS: SODIUM CHLORIDE 0.9% FLUSH 10 ML FLUSH IV FLUSH SCH (08:26)
[2018-01-21] MEDS: DIGOXIN 0.125 MG TAB PO SCH (08:27)
[2018-01-21] MEDS: FUROSEMIDE 40 MG TAB PO SCH (08:27)
[2018-01-21] MEDS: PARoxetine HCL 20 MG TAB PO SCH (08:27)
[2018-01-21] MEDS: FENOFIBRATE 145 MG TAB PO SCH (08:27)
[2018-01-21] MEDS: GABAPENTIN 300 MG CAP PO SCH (08:27)
[2018-01-21] MEDS: MAGNESIUM OXIDE 400 MG TAB PO SCH (08:27)
[2018-01-21] MEDS: SPIRONOLACTONE 50 MG TAB PO SCH (08:27)
[2018-01-21] MEDS: DOCUSATE SODIUM 50 MG/SENNA 8.6 MG TAB PO SCH (08:28)
[2018-01-21] MEDS: ASCORBIC ACID 500 MG TAB PO SCH (08:28)
[2018-01-21] MEDS: ASPIRIN 81 MG CHEW TAB PO SCH (08:28)
[2018-01-21] MEDS: DILTIAZEM-CD 240 MG CAP ER PO SCH (08:30)
[2018-01-21] MEDS: INSULIN ASPART SUPPLEMENTAL SCALE SQ SCH ×2 (09:41→14:01)
[2018-01-21] MEDS: CALCIUM/VITAMIN D 250 MG/125 U TAB PO SCH (10:06)
[2018-01-21] MEDS: cefTRIAXone INJ 1,000 MG in SODIUM CHLORIDE 0.9% INJ 100 ML IV SCH (10:06)
[2018-01-21 12:18] VITALS: BP 133/71; PULSE 74; RESP 20; TEMP 97.9; O2SAT 92
--- NOTE | 2018-01-21 12:24 | HHI.PR ---
Subjective Remarks Follow-up diarrhea and UTI. Patient states she is doing good denies loose stools and UTI symptoms. Aware she needs close follow-up of INR while on antibiotic to be checked twice a week to keep INR between 2 and 3. Discussed with nursing Objective Vitals Vital Signs Date Time Temp Pulse Resp B/P (MAP) Pulse Ox O2 Delivery O2 Flow Rate FiO2 01/21/18 07:41 97.5 75 20 109/63 (78) 92 01/21/18 04:11 97.7 64 16 126/58 (80) 94 01/20/18 23:49 98.5 60 17 121/58 (79) 93 01/20/18 12:22 98.6 60 20 120/60 (80) 98 I/O 01/20/18 01/20/18 01/20/18 01/21/18 01/21/18 01/21/18 07:00 15:00 23:00 07:00 15:00 23:00 Intake Total 1050 ml 1960 ml 1100 ml Balance 1050 ml 1960 ml 1100 ml Intake Oral 1110 ml IV Total 1050 ml 850 ml 1100 ml # Voids 3 Result Diagram: 01/21/18 0433 01/21/18 0433 Imaging Last Impressions Abdomen/Pelvis CT 01/19/18 1615 Signed Impressions: Service Date/Time: Friday, January 19, 2018 17:50 - CONCLUSION: 1. Calcified appendicolith. 2. Hepatic steatosis. 3. Bilateral renal scarring and right kidney is atrophic. Bahman Rodney MD Chest X-Ray 01/19/18 0000 Signed Impressions: Service Date/Time: Friday, January 19, 2018 21:09 - CONCLUSION: No acute disease. Bahman Rodney MD Objective Remarks GENERAL: Awake alert oriented 3 in no acute distress talkative and cooperative SKIN: Warm and dry. CARDIOVASCULAR: Loud systolic murmur. S1-S2 no S3 or S4 RESPIRATORY: No accessory muscle use. Clear to auscultation. Breath sounds equal bilaterally. GASTROINTESTINAL: Abdomen soft, non-tender, nondistended. MUSCULOSKELETAL: Extremities without clubbing, cyanosis, or edema. No obvious deformities. NEUROLOGICAL: Awake and alert. No obvious cranial nerve deficits. Motor grossly within normal limits. Five out of 5 muscle strength in the arms and legs. Normal speech. PSYCHIATRIC: Appropriate mood and affect; insight and judgment normal. Procedures NONE A/P Problem List: (1) Intractable abdominal pain ICD Code: R10.9 - Unspecified abdominal pain (2) Appendicolith ICD Code: K38.9 - Disease of appendix, unspecified Status: Acute (3) Renal insufficiency ICD Code: N28.9 - Disorder of kidney and ureter, unspecified (4) A-fib ICD Code: I48.91 - Unspecified atrial fibrillation (5) DM (diabetes mellitus) ICD Code: E11.9 - Type 2 diabetes mellitus without complications Assessment and Plan 1. Intractable Abd Pain: Improved. She has E. coli UTI on IV Rocephin switch to Ceftin 2. Appendicolith: CT Abd/Pelvis w/ appendicolith, images reviewed by me. GS plans no immediate intervention op f/u Monitor vitals, afebrile, no leukocytosis. Continue w/ pain control 3. Renal Insufficiency: Reports "one functioning kidney", baseline creatinine unknown. This is improving 4. A-fib: Chronic. Stable continue digoxin, Cardizem and Coumadin 5. DM: Sliding scale w/ Accu-Cheks. A1c 8.2. Diabetic education 6. Mild AST elevation. Could be med related. Continue to monitor outpatient. DVT Prophylaxis: Resume Coumadin Discharge Planning Discharge patient to home Condition on discharge: Improved Regular Diet as tolerated Ad Vira activity no driving Rx written: Ceftin and INR every Sunday and between 2 and 3 for 1 week results to PCP Follow-up with primary care physician Adalberto Kay MD Jan 21, 2018 12:24
[2018-01-21] MEDS ORDERED: GLUCKIT15 (12:54)
[2018-01-21] MEDS ORDERED: CEFU1TAB20 PO (12:54)
[2018-01-21] MEDS ORDERED: LANCETS1 MI1 (12:54)
[2018-01-21] MEDS ORDERED: GLUCTES12 (12:54)
--- NOTE | 2018-01-21 12:57 | HHI.DCPOC ---
Discharge Care Plan Diagnosis: (1) UTI (urinary tract infection) due to Enterococcus (2) A-fib (3) DM (diabetes mellitus) Your Health Problems Are: Difficulty with ADL Inflammation Bleeding Tendency Goals to Promote Your Health * To prevent worsening of your condition and complications * To maintain your health at the optimal level Directions to Meet Your Goals Take your medications as prescribed Follow your dietary instruction Follow activity as directed Keep your appointments as scheduled Take your immunizations and boosters as scheduled If your symptoms worsen call your PCP, if no PCP go to Urgent Care Center or Emergency Room Smoking is Dangerous to Your Health. Avoid second hand smoke Call the 24-hour hour crisis hotline for domestic abuse at [facility] Jan 21, 2018 12:57 pm
[2018-01-21 16:18] LABS: HEMOGLOBIN A1C 8.2 % (4.3-6.0)
== END 2018-01-21 17:24 | disposition home or self-care (01) ==
LOC: NEPE 15:40 → NEDA 19:38 → NEPFCDU 22:24
PROVIDERS: ADMIT Internal Medicine; ATTEND Internal Medicine
DX: N39.0 Urinary tract infection, site not specified (principal); B96.20 Unspecified Escherichia coli [E. coli] as the cause of diseases classified elsewhere; B95.2 Enterococcus as the cause of diseases classified elsewhere; I48.2 Chronic atrial fibrillation; K38.9 Disease of appendix, unspecified; I13.0 Hypertensive heart and chronic kidney disease with heart failure and stage 1 through stage 4 chronic kidney disease, or unspecified chronic kidney disease; I50.9 Heart failure, unspecified; N18.9 Chronic kidney disease, unspecified; E11.22 Type 2 diabetes mellitus with diabetic chronic kidney disease; K52.9 Noninfective gastroenteritis and colitis, unspecified; K38.1 Appendicular concretions; K76.0 Fatty (change of) liver, not elsewhere classified; J18.9 Pneumonia, unspecified organism; E87.1 Hypo-osmolality and hyponatremia; E86.0 Dehydration; Z79.01 Long term (current) use of anticoagulants; Z87.891 Personal history of nicotine dependence; Z90.710 Acquired absence of both cervix and uterus
CPT/HCPCS: 71046; 74176; 80053; 80162; 81001; 82948; 83036; 83690; 83735; 84100; 84439; 84443; 85025; 85610; 87077; 87086; 87186; 87329; 87493; 96361; 96365; 96366; 96372; G0378; G8987-GP; G8988-GP; J0696; J1815; J7030